=== PATIENT | female | born 1925 | race Caucasian/White ===

== ENCOUNTER 2016-10-24 22:14 | Inpatient (IN) | payer MEDICARE, OTHER ==
[~2016-10-24] VITALS: Ht 162.6 cm; Wt 76.2 kg
--- NOTE | 2016-10-24 22:20 | NUR ---
MEDICALLY CLEARED BY DR URIOSTEGUI
[2016-10-24] MEDS ORDERED: POLY17PO4 PO (22:29)
[2016-10-24] MEDS ORDERED: HALO5VIA2 IM (22:29)
[2016-10-24] MEDS ORDERED: ACET-2154 PO (22:29)
[2016-10-24] MEDS ORDERED: ENOX40DI SQ (22:29)
[2016-10-24] MEDS ORDERED: AMLO5TAB2 PO (22:29)
[2016-10-24] MEDS ORDERED: DOCU-141 PO (22:29)
[2016-10-24] MEDS ORDERED: QUET25TA PO (22:29)
[2016-10-24] MEDS ORDERED: TRAZ-144 PO (22:29)
[2016-10-24 22:45] VITALS: BP 133/63
--- NOTE | 2016-10-24 23:30 | NUR ---
received to care, from [facility], a resident of [facility] unit, with a history of dementia, where she had been becoming increasingly confused, combative, and resistive with care. she was sent to the hospital, where she became more combative and unmanageable. upon arrival on the unit, accompanied by 2 of her children, she is very confused and disorganized, talking to self, difficult to redirect, or orient to reality. history given by family. pt remains restless, and difficult to redirect. PRN medication offered for insomnia, but she declined, as well as a shower(she was disheveled and malodorous). as of 2329, she remains up in lela chair. monitored closely, for safety.
[2016-10-24] MEDS ORDERED: MAG HYDROX/AL HYDROX/SIMETH 30 ML LIQUID UDC PO PRN (23:45)
[2016-10-24] MEDS ORDERED: ACETAMINOPHEN 325 MG TABLET PO PRN (23:45)
[2016-10-24] MEDS ORDERED: MAGNESIUM HYDROXIDE 30 ML LIQUID UDC PO PRN (23:45)
[2016-10-25] MEDS ORDERED: TEMAZEPAM 7.5 MG CAPSULE ONE
[2016-10-25] MEDS: TEMAZEPAM 7.5 MG CAPSULE PO PRN (00:10)
--- NOTE | 2016-10-25 00:10 | NUR ---
PRN restoril was given. she was assisted with a shower. currently up in lela chair.
--- NOTE | 2016-10-25 00:45 | NUR ---
assisted to bed, but she remains agitated, and attempted to climb out of bed. difficult to redirect. states "leave me alone. i dont need any help" assited up in lela chair, for safety, and placed at nurses station.
--- NOTE | 2016-10-25 01:30 | NUR ---
remains agitated and restless. states "let me out of here. hy children are outside looking for me" SHAINA reeves was offered, but she declined.
--- NOTE | 2016-10-25 02:59 | NUR ---
remains awake. yells out intermittently. monitored closely for safety.
--- NOTE | 2016-10-25 06:00 | NUR ---
did not sleep, last night. assisted to the bathroom,and with AM care. remains labile. needs frequent redirection. will contionue to monitor closely.
[2016-10-25 07:30] VITALS: BP 165/94
--- NOTE | 2016-10-25 12:55 | NUR ---
Initial discharge instructions: Pt was residing at [facility] [[address],[place],[address]; ].Per pt,she would like to return there upon discharge.Per DPOA/daughter-Toma [phone],pt may not return back the the facility.Toma reported that family is arranging placement with [facility] in [place].SW will speak with pt,family,and MD regarding appropriate discharge plans.SW will form a safe and proper discharge.
[2016-10-25 16:51] VITALS: BP 166/83
[2016-10-25] MEDS: LORAZEPAM 1 MG TABLET PO PRN (16:55)
[2016-10-25 19:48] VITALS: BP 164/90
[2016-10-25] MEDS: RIVASTIGMINE TARTRATE 1.5 MG CAPSULE PO SCH ×2 (21:00→21:47)
[2016-10-25] MEDS: risperiDONE 0.25 MG TABLET PO SCH ×2 (21:00→21:47)
[2016-10-25] MEDS ORDERED: DOCUSATE SODIUM 100 MG CAPSULE PO PRN (21:15)
[2016-10-25] MEDS ORDERED: CLONIDINE HCL 0.1 MG TABLET PO PRN (21:15)
[2016-10-25] MEDS ORDERED: MIRALAX 17 GM POWD.PACK PO PRN (21:15)
[2016-10-25] MEDS: AMLODIPINE 5 MG TABLET PO SCH (21:48)
[2016-10-25] MEDS ORDERED: AMLODIPINE 5 MG TABLET ONE (21:49)
--- NOTE | 2016-10-25 22:00 | NUR ---
received to care, up in lela chair, intermittently talking to self, appearing distracted, by internal stimuli. 1;1 sitter remains at side, for safety. initially refused her bedtime medications, but finally took them, at 2146. as of 2199, she remains up in the lela chair, talking to self. assisted as needed. will continue to monitor closely.
[2016-10-25 23:00] VITALS: BP 150/79
[2016-10-26] MEDS: TEMAZEPAM 7.5 MG CAPSULE PO PRN (00:38)
--- NOTE | 2016-10-26 00:38 | NUR ---
remains awake, and restless. PRN restoril, and PO fluids were given, at this time.
--- NOTE | 2016-10-26 00:50 | NUR ---
assisted to bed, and given PM care, including diaper change, and oral care.
--- NOTE | 2016-10-26 01:11 | NUR ---
appears to be asleep. no distress noted. sitter remains at side, for safety.
--- NOTE | 2016-10-26 06:00 | NUR ---
slept 4 hours, total. remains asleep, but easy to awaken. no distress noted.
[2016-10-26] MEDS: risperiDONE 0.25 MG TABLET PO SCH ×3 (09:08→12:58)
[2016-10-26] MEDS: ESCITALOPRAM OXALATE 10 MG TABLET PO SCH ×2 (09:08→12:57)
[2016-10-26] MEDS: RIVASTIGMINE TARTRATE 1.5 MG CAPSULE PO SCH ×3 (09:08→12:56)
[2016-10-26] MEDS: AMLODIPINE 5 MG TABLET PO SCH ×3 (11:30→21:15)
--- NOTE | 2016-10-26 11:51 | NUR ---
1130: PT'S BP 178/84, 179/90, PULSE 79 ON LEFT ARM. PT STRONGLY REFUSED BP MEDS INCLUDING CLONIDINE AND PSYCH MEDS. PT WOULD NOT OPEN MOUTH. PRODUCTION REPAIRER NICOLE MADE AWARE WITH A NEW ORDER OF CLONIDINE PATCH. WILL MONITOR. Addendum: 10/26/16 at 1155 by VERN HORVATH RN PT COMPLAINED OF HEADACHE. DENIES N/V, DIZZINESS.
--- NOTE | 2016-10-26 12:00 | NUR ---
0900: PT WAS ASLEEP, RESTING COMFORTABLY IN BED. SITTER AT BEDSIDE. PER SITTER, PT REFUSED VS CHECKED THIS MORNING AND WAS BEING COMBATIVE. RESISTING CARE. WILL MONITOR.
[2016-10-26] MEDS: CLONIDINE-TTS 1 PATCH TD SCH (16:06)
[2016-10-26 19:55] VITALS: BP 155/66
[2016-10-27 07:30] VITALS: BP 157/77
[2016-10-27 08:05] LABS: BASOPHILS % (AUTO) 0.3 % (0.0-2.0); EOSINOPHILS % (AUTO) 0.5 % (0.0-7.0); HEMATOCRIT 41.5 % (37-47); HEMOGLOBIN 13.7 G/DL (12.0-16.0); LYMPHOCYTES # (AUTO) 0.9 K/UL (0.8-4.8); LYMPHOCYTES % (AUTO) 13.4 % (20.5-51.5); MEAN CORPUSCULAR HEMOGLOBIN 28.6 UUG (27.0-31.0); MEAN CORPUSCULAR HGB CONC 33 g/dL (32.0-37.0); MEAN CORPUSCULAR VOLUME 86.7 FL (81.0-99.0); MONOCYTES # (AUTO) 0.7 K/UL (0.1-1.30); MONOCYTES % (AUTO) 9.7 % (0.0-11.0); NEUTROPHILS # (AUTO) 5.3 K/UL (1.8-8.9); NEUTROPHILS % (AUTO) 76.1 % (38.5-71.5); PLATELET COUNT (AUTO) 211 K/UL (150-450); RED BLOOD CELL COUNT(AUTO) 4.79 MIL/UL (4.2-5.4); WHITE BLOOD COUNT (AUTO) 6.9 K/UL (4.0-11.2)
[2016-10-27 08:25] LABS: ALANINE AMINOTRANSFERASE 23 U/L (14-59); ALKALINE PHOSPHATASE 77 U/L (50-136); ASPARTATE AMINOTRANSFERASE 20 U/L (15-37); BILIRUBIN,TOTAL 0.7 mg/dL (0.2-1.0); CARBON DIOXIDE 25 mmol/L (21-32); CHLORIDE 105 mmol/L (98-107); CHOLESTEROL 141 mg/dL (<200); CREATININE 0.8 mg/dL (0.6-1.3); GLUCOSE 114 mg/dL (74-106); HDL CHOLESTEROL 48 mg/dL (40-60); MAGNESIUM 1.9 mg/dL (1.8-2.4); PHOSPHOROUS 3.3 mg/dL (2.5-4.9); POTASSIUM 3.2 mmol/L (3.5-5.1); THYROID STIMULATING HORMONE 0.922 mIU/mL (0.358-3.740); TOTAL PROTEIN, SERUM 6.5 g/dL (6.4-8.2); TRIGLYCERIDES 61 MG/DL (30-150); UREA NITROGEN, BLOOD 19 mg/dL (7-18)
[2016-10-27] MEDS ORDERED: POTASSIUM CHLORIDE 20 MEQ TAB.PRT.SR PO ONE (09:15)
[2016-10-27] MEDS: RIVASTIGMINE TARTRATE 1.5 MG CAPSULE PO SCH ×2 (09:35→20:18)
[2016-10-27] MEDS: risperiDONE 0.25 MG TABLET PO SCH ×2 (09:35→20:18)
[2016-10-27] MEDS: ESCITALOPRAM OXALATE 10 MG TABLET PO SCH (09:35)
[2016-10-27] MEDS: AMLODIPINE 5 MG TABLET PO SCH ×2 (09:36→20:19)
[2016-10-27] MEDS ORDERED: PNEUMOCOCCAL 23-VAL P-SAC VAC 0.5 ML VIAL IM ONE (13:00)
[2016-10-27 15:35] VITALS: BP 132/51
[2016-10-27 20:09] VITALS: BP 145/71
--- NOTE | 2016-10-27 20:44 | NUR ---
PATIENT RECEIVED IN BED AWAKE, PATIENT REMAINS WITH A 1:1 SITTER FOR SAFETY. PATIENT YELLING "GET OUT OF HERE, TELL HER TO LEAVE." PATIENT UNPREDICTABLE. PATIENT IS EASILY IRRITABLE/ANGRY WILL CONTINUE TO MONITOR AND REDIRECT NEEDED. PATIENT COMPLAINT WITH MEDICATION. NO APPARENT DISTRESS NOTED WILL CONTINUE TO MONITOR. PATIENT DENIES PAIN AT THIS TIME, NO FACIAL GRIMACING NOTED WILL CONTINUE TO MONITOR. BED IN LOWEST POSITION, BED LOCKED, AND BED ALARM ON WHILE IN BED.
--- NOTE | 2016-10-28 03:06 | NUR ---
PATIENT REPOSITIONED, PATIENT REMOVED PILLOWS AND MOVED HER SELF TO HER BACK. PATIENT INFORMED OF THE IMPORTANCE OF REPOSITIONING, WILL CONTINUE TO MONITOR.
[2016-10-28 07:30] VITALS: BP 150/68
[2016-10-28] MEDS: risperiDONE 0.25 MG TABLET PO SCH (08:24)
[2016-10-28] MEDS: AMLODIPINE 5 MG TABLET PO SCH ×2 (08:24→20:29)
[2016-10-28] MEDS: ESCITALOPRAM OXALATE 10 MG TABLET PO SCH (08:24)
[2016-10-28] MEDS: RIVASTIGMINE TARTRATE 1.5 MG CAPSULE PO SCH ×2 (08:24→20:05)
[2016-10-28 16:42] VITALS: BP 137/73
[2016-10-28] MEDS: risperiDONE 0.5 MG TABLET PO SCH (20:05)
[2016-10-28 20:45] VITALS: BP 130/63
[2016-10-28] MEDS ORDERED: risperiDONE 0.5 MG TABLET PO SCH (21:00)
--- NOTE | 2016-10-28 21:11 | NUR ---
PATIENT RECEIVED IN BED AWAKE, PATIENT REMAINS WITH A 1:1 SITTER FOR SAFETY. PATIENT YELLS OCCASIONALLY. PATIENT UNPREDICTABLE. PATIENT IS EASILY IRRITABLE/ANGRY WILL CONTINUE TO MONITOR AND REDIRECT NEEDED. PATIENT COMPLAINT WITH MEDICATION. NO APPARENT DISTRESS NOTED WILL CONTINUE TO MONITOR. PATIENT DENIES PAIN AT THIS TIME, NO FACIAL GRIMACING NOTED WILL CONTINUE TO MONITOR. BED IN LOWEST POSITION, BED LOCKED, AND BED ALARM ON WHILE IN BED. PATIENT REPOSITIONED EVERY 2 HOURS OR NEEDED, PATIENT REMOVES PILLOWS INFORMED THE IMPORTANCE OF REPOSITION.
[2016-10-28] MEDS: TEMAZEPAM 7.5 MG CAPSULE PO PRN (21:56)
[2016-10-29 07:46] VITALS: BP 141/52
[2016-10-29] MEDS: risperiDONE 0.5 MG TABLET PO SCH ×2 (08:36→20:59)
[2016-10-29] MEDS: AMLODIPINE 5 MG TABLET PO SCH ×2 (08:37→20:59)
[2016-10-29] MEDS: RIVASTIGMINE TARTRATE 1.5 MG CAPSULE PO SCH ×2 (08:37→20:59)
[2016-10-29] MEDS: ESCITALOPRAM OXALATE 10 MG TABLET PO SCH (08:37)
[2016-10-29] MEDS ORDERED: MAGNESIUM HYDROXIDE 30 ML LIQUID UDC PO ONE (13:30)
[2016-10-29] MEDS: LORAZEPAM 1 MG TABLET PO PRN (15:57)
[2016-10-29 16:33] VITALS: BP 138/69
[2016-10-29 20:00] VITALS: BP 135/67
[2016-10-30] MEDS: TEMAZEPAM 7.5 MG CAPSULE PO PRN (00:36)
[2016-10-30 07:30] VITALS: BP 90/69
[2016-10-30 07:32] LABS: BASOPHILS % (AUTO) 0.4 % (0.0-2.0); EOSINOPHILS # (AUTO) 0.2 K/uL (0.0-0.7); EOSINOPHILS % (AUTO) 2.8 % (0.0-7.0); HEMATOCRIT 39.7 % (37-47); HEMOGLOBIN 13.2 G/DL (12.0-16.0); LYMPHOCYTES # (AUTO) 1.4 K/UL (0.8-4.8); LYMPHOCYTES % (AUTO) 22.5 % (20.5-51.5); MEAN CORPUSCULAR HEMOGLOBIN 28.6 UUG (27.0-31.0); MEAN CORPUSCULAR HGB CONC 33 g/dL (32.0-37.0); MEAN CORPUSCULAR VOLUME 85.9 FL (81.0-99.0); MONOCYTES # (AUTO) 0.6 K/UL (0.1-1.30); MONOCYTES % (AUTO) 9.6 % (0.0-11.0); NEUTROPHILS # (AUTO) 3.9 K/UL (1.8-8.9); NEUTROPHILS % (AUTO) 64.7 % (38.5-71.5); PLATELET COUNT (AUTO) 224 K/UL (150-450); RED BLOOD CELL COUNT(AUTO) 4.62 MIL/UL (4.2-5.4); WHITE BLOOD COUNT (AUTO) 6.1 K/UL (4.0-11.2)
[2016-10-30 07:53] LABS: ALANINE AMINOTRANSFERASE 17 U/L (14-59); ALKALINE PHOSPHATASE 73 U/L (50-136); ASPARTATE AMINOTRANSFERASE 16 U/L (15-37); BILIRUBIN,TOTAL 0.3 mg/dL (0.2-1.0); CARBON DIOXIDE 29 mmol/L (21-32); CHLORIDE 106 mmol/L (98-107); CREATININE 0.8 mg/dL (0.6-1.3); GLUCOSE 126 mg/dL (74-106); MAGNESIUM 2.1 mg/dL (1.8-2.4); PHOSPHOROUS 4.1 mg/dL (2.5-4.9); POTASSIUM 3.2 mmol/L (3.5-5.1); TOTAL PROTEIN, SERUM 6.3 g/dL (6.4-8.2); UREA NITROGEN, BLOOD 27 mg/dL (7-18)
[2016-10-30] MEDS: RIVASTIGMINE TARTRATE 1.5 MG CAPSULE PO SCH ×2 (08:24→20:42)
[2016-10-30] MEDS: AMLODIPINE 5 MG TABLET PO SCH ×2 (08:26→20:42)
[2016-10-30] MEDS: ESCITALOPRAM OXALATE 10 MG TABLET PO SCH (08:26)
[2016-10-30] MEDS: risperiDONE 0.5 MG TABLET PO SCH ×2 (08:27→20:41)
[2016-10-30] MEDS ORDERED: POTASSIUM CHLORIDE 20 MEQ TAB.PRT.SR PO ONE (10:00)
[2016-10-30 15:06] VITALS: BP 141/67
[2016-10-30 20:14] VITALS: BP 90/69
[2016-10-30 20:25] VITALS: BP 139/55
[2016-10-31] MEDS: ESCITALOPRAM OXALATE 10 MG TABLET PO SCH (09:04)
[2016-10-31] MEDS: RIVASTIGMINE TARTRATE 1.5 MG CAPSULE PO SCH ×2 (09:04→20:18)
[2016-10-31] MEDS: risperiDONE 0.5 MG TABLET PO SCH (09:04)
[2016-10-31] MEDS: AMLODIPINE 5 MG TABLET PO SCH ×2 (09:15→20:19)
[2016-10-31 15:00] VITALS: BP 140/62
[2016-10-31] MEDS: risperiDONE 1 MG TABLET PO SCH (20:19)
[2016-10-31 20:25] VITALS: BP 145/68
[2016-11-01] MEDS: RIVASTIGMINE TARTRATE 1.5 MG CAPSULE PO SCH ×2 (08:33→20:29)
[2016-11-01] MEDS: AMLODIPINE 5 MG TABLET PO SCH ×2 (08:33→20:29)
[2016-11-01] MEDS: ESCITALOPRAM OXALATE 10 MG TABLET PO SCH (08:33)
[2016-11-01 15:00] VITALS: BP 119/69
--- NOTE | 2016-11-01 18:58 | NUR ---
patient in bed all day took am meds with crushed and in foods, then pt slept and no interaction with p.t. .oob with family to bathroom in pm . continue to monitor
[2016-11-01] MEDS: risperiDONE 1 MG TABLET PO SCH (20:29)
[2016-11-01 20:51] VITALS: BP 128/58
--- NOTE | 2016-11-02 06:42 | NUR ---
GPS: Pt.was combative,uncooperative and resistive to care earlier. Re-directed and re-assured prn. Fall precautions observed. Will continue to monitor.
[2016-11-02 07:30] VITALS: BP 148/60
[2016-11-02] MEDS: RIVASTIGMINE TARTRATE 1.5 MG CAPSULE PO SCH ×2 (09:03→20:16)
[2016-11-02] MEDS: ESCITALOPRAM OXALATE 10 MG TABLET PO SCH (09:03)
[2016-11-02] MEDS: AMLODIPINE 5 MG TABLET PO SCH ×2 (09:04→20:19)
[2016-11-02] MEDS: CLONIDINE-TTS 1 PATCH TD SCH (12:12)
[2016-11-02 15:54] VITALS: BP 134/58
[2016-11-02] MEDS: risperiDONE 1 MG TABLET PO SCH (20:16)
[2016-11-02 20:48] VITALS: BP 131/57
[2016-11-03 07:30] VITALS: BP 143/71
[2016-11-03 07:44] LABS: BASOPHILS % (AUTO) 0.6 % (0.0-2.0); EOSINOPHILS # (AUTO) 0.2 K/uL (0.0-0.7); EOSINOPHILS % (AUTO) 3.2 % (0.0-7.0); HEMOGLOBIN 13.1 G/DL (12.0-16.0); LYMPHOCYTES # (AUTO) 1.6 K/UL (0.8-4.8); MEAN CORPUSCULAR HGB CONC 34 g/dL (32.0-37.0); MEAN CORPUSCULAR VOLUME 86.1 FL (81.0-99.0); MONOCYTES # (AUTO) 0.5 K/UL (0.1-1.30); MONOCYTES % (AUTO) 9.7 % (0.0-11.0); NEUTROPHILS # (AUTO) 3.1 K/UL (1.8-8.9); NEUTROPHILS % (AUTO) 57.5 % (38.5-71.5); PLATELET COUNT (AUTO) 213 K/UL (150-450); RED BLOOD CELL COUNT(AUTO) 4.53 MIL/UL (4.2-5.4); WHITE BLOOD COUNT (AUTO) 5.4 K/UL (4.0-11.2)
[2016-11-03 08:08] LABS: ALANINE AMINOTRANSFERASE 18 U/L (14-59); ALKALINE PHOSPHATASE 76 U/L (50-136); ASPARTATE AMINOTRANSFERASE 12 U/L (15-37); BILIRUBIN,TOTAL 0.4 mg/dL (0.2-1.0); CARBON DIOXIDE 29 mmol/L (21-32); CHLORIDE 107 mmol/L (98-107); CREATININE 0.9 mg/dL (0.6-1.3); GLUCOSE 115 mg/dL (74-106); MAGNESIUM 2.1 mg/dL (1.8-2.4); PHOSPHOROUS 3.2 mg/dL (2.5-4.9); POTASSIUM 3.7 mmol/L (3.5-5.1); TOTAL PROTEIN, SERUM 6.3 g/dL (6.4-8.2); UREA NITROGEN, BLOOD 19 mg/dL (7-18)
[2016-11-03] MEDS: ESCITALOPRAM OXALATE 10 MG TABLET PO SCH (08:17)
[2016-11-03] MEDS: RIVASTIGMINE TARTRATE 1.5 MG CAPSULE PO SCH ×2 (08:17→20:13)
[2016-11-03] MEDS: AMLODIPINE 5 MG TABLET PO SCH ×2 (08:18→20:17)
[2016-11-03 16:00] VITALS: BP 142/62
[2016-11-03 20:00] VITALS: BP 150/78
[2016-11-03] MEDS: risperiDONE 1 MG TABLET PO SCH (20:13)
[2016-11-04 07:46] VITALS: BP 147/68
[2016-11-04] MEDS: RIVASTIGMINE TARTRATE 1.5 MG CAPSULE PO SCH ×2 (08:39→20:34)
[2016-11-04] MEDS: ESCITALOPRAM OXALATE 10 MG TABLET PO SCH (08:39)
[2016-11-04] MEDS: AMLODIPINE 5 MG TABLET PO SCH ×2 (08:39→20:35)
[2016-11-04] MEDS ORDERED: BISACODYL 10 MG SUPP.RECT RC ONE (11:00)
[2016-11-04] MEDS ORDERED: MAGNESIUM HYDROXIDE 30 ML LIQUID UDC PO ONE (11:00)
[2016-11-04 16:35] VITALS: BP 129/60
[2016-11-04] MEDS: risperiDONE 1 MG TABLET PO SCH (20:34)
[2016-11-04 21:24] VITALS: BP 129/63
--- NOTE | 2016-11-05 06:22 | NUR ---
Patient slept for approx 8 hrs through the night. Patient compliant with medication regiment. no behavior problems noted or reported during the shift. No BM during the shift, unable to collect stool sample. will endorse to incoming shift.
[2016-11-05 07:30] VITALS: BP 147/66
[2016-11-05] MEDS: ESCITALOPRAM OXALATE 10 MG TABLET PO SCH (08:14)
[2016-11-05 08:15] VITALS: BP 147/66
[2016-11-05] MEDS: RIVASTIGMINE TARTRATE 1.5 MG CAPSULE PO SCH (08:15)
[2016-11-05] MEDS: AMLODIPINE 5 MG TABLET PO SCH (08:15)
--- NOTE | 2016-11-05 10:02 | NUR ---
DC Note: Patient will be discharged today to [facility] [[address] [place] [address]; [phone]] via ambulance at 12:00 pm. Please schedule an ambulance for the patient. Spoke with Rosalia at the facility who stated they will accept the patient today. Patients daughterToma [phone] is aware and agreeable with discharge plans. Patient is aware and agreeable with discharge plans as well. Patient will follow-up with Dr. Liz ([facility]) [[address] [place] [address]; [phone]] and (Psychiatrist) at the facility.
--- NOTE | 2016-11-05 13:30 | NUR ---
1200 Daughter w/ DPOADanette came to accompay patient discharged to [facility] [place], [place]. Discharged intructions given to to dtr. regarding medications to continue at [facility], also all prescription called in to patient pharmacy- datr. verbalized understanding. 1330 Picked up by ambulance and transported to [facility] , patient alert and ox1-2, denies SI/HI. no delusions/no hallucinations noted.
== END 2016-11-05 13:30 | DRG 885 ==
LOC: ER 22:24 → GPS 22:40
PROVIDERS: ADMIT Psychiatry & Neurology Psychiatry; ATTEND Psychiatry & Neurology Psychiatry
DX: F29 Unspecified psychosis not due to a substance or known physiological condition (principal); E43 Unspecified severe protein-calorie malnutrition; F03.91 Unspecified dementia, unspecified severity, with behavioral disturbance; Z87.891 Personal history of nicotine dependence; Z91.19 Patient's noncompliance with other medical treatment and regimen; K59.00 Constipation, unspecified; I10 Essential (primary) hypertension; E87.6 Hypokalemia; R73.9 Hyperglycemia, unspecified
CPT/HCPCS: 36415; 83735; 84100; 84443; 85025; 90732; 93005; 97110; 97116; 97161; 97530